=== PATIENT | male | born 1955 | race African-American/Black ===

== ENCOUNTER 2017-01-01 16:21 | Inpatient (IN) ==
[2017-01-01] MEDS ORDERED: ACETAMINOPHEN 325 MG TABLET PO PRN (17:03)
[2017-01-01] MEDS ORDERED: DEXTROSE 50% 25 GM/50 ML VIAL IV PRN ×2 (17:03)
[2017-01-01] MEDS ORDERED: ONDANSETRON 4 MG/2 ML VIAL IV PRN (17:03)
[2017-01-01] MEDS ORDERED: GLUCAGON 1 MG VIAL IM PRN ×2 (17:03)
[2017-01-01] MEDS ORDERED: BISACODYL 5 MG TABLET PO PRN (17:03)
--- NOTE | 2017-01-01 17:11 | Nephrology History & Physical ---
History of Present Illness Chief complaint: fever and chills History of present illness: Mr. Gonsalez is a 61 year old male history of chronic kidney disease due to hypertension and diabetes. The gentleman also has a history of coronary artery disease status post a stent placed approximately 2 years ago. The gentleman was in a good state of health until yesterday when he started having body aches and chills. Today he was noted to have temperature greater than 101 in clinic. Continued body aches and chills today. He is in been admitted from the clinic due to fever and noted to have a white blood cell count of greater than 17. He has received 2 g of Rocephin in the clinic as well as IV fluids. The gentleman remains very weak and has had Tylenol but still is feverish. Home Medications Medication Instructions Recorded Confirmed Type Allopurinol [Zyloprim] 100 mg PO DAILY 05/15/15 10/18/16 History Amlodipine Besylate 10 mg PO DAILY 05/15/15 10/18/16 History Aspirin EC Tab 81 mg PO DAILY 05/15/15 10/18/16 History Colchicine 0.6 mg PO DAILY 05/15/15 10/18/16 History Cyanocobalamin Tab [Vitamin B12 2,000 mcg PO DAILY 05/15/15 10/18/16 History Tab] Fenofibrate 54 mg PO DAILY 05/15/15 10/18/16 History Furosemide Tab [Lasix Tab] 20 mg PO BID DIURETIC 05/15/15 10/18/16 History [place]-3/Dha/Epa/Fish Oil [Fish Oil 1 capsule PO BID 05/15/15 10/18/16 History 1,000 mg Softgel] Pyridoxine HCl [Vitamin B-6] 100 mg PO DAILY 05/15/15 10/18/16 History glipiZIDE XL [Glucotrol Xl] 10 mg PO BID W/MEALS 05/15/15 10/18/16 History Atorvastatin [Lipitor] 40 mg PO DAILY 10/18/16 10/18/16 History Carvedilol 25 mg PO BID 10/18/16 10/18/16 History Clopidogrel [Plavix] 75 mg PO DAILY 10/18/16 10/18/16 History Fluticasone Propionate [Flonase 1 spray BOTH NARES DAILY 10/18/16 10/18/16 History Allergy Relief] Gabapentin 300 mg PO TID 10/18/16 10/18/16 History Loratadine 10 mg PO DAILY 10/18/16 10/18/16 History Multivitamin (Centrum) [Centrum 1 tablet PO DAILY 10/18/16 10/18/16 History Tab] Pantoprazole Tab [Protonix Tab] 40 mg PO DAILY 10/18/16 10/18/16 History hydrALAZINE TAB [Apresoline Tab] 50 mg PO TID 10/18/16 10/18/16 History Allergies Allergy/AdvReac Type Severity Reaction Status Date / Time No Known Drug Allergies Allergy Verified 05/15/15 00:15 Review of Systems Constitutional: chills, fatigue, fever(s), malaise Cardiovascular: no chest pain at rest, no dyspnea Gastrointestinal: no abdominal pain Neurological: no abnormal gait Medical,Surgical,& Family Hx - Medical History Cardio: History of: CAD, Hypertension, MT (2014), Cardiovascular Problems ( stents x 2 in 2014) No history of: CHF, Pacemaker Neurology: No history of: Vertigo HEENT: History of: Eye Problem (glasses) Endocrine: History of: Diabetes Mellitus (NIDDM), Dyslipidemia Rheumatology: History of;: Gout Respiratory: History of: Obstructive Sleep Apnea (uses c pap), Respiratory Problems (wheezing at times) Renal: History of: Renal Failure Genitourinary: No history of: Prostate Problems Gastrointestinal: History of: GERD, Polyps No history of: Hemorrhoids, Hepatitis, Liver Problems Musculoskeletal: History of: Back/Neck Problems, Herniated Disk Hematology: No history of: Blood Transfusion Reaction Other: No history of: Anesthesia Reactions, Cancer - Surgical History Cardiac Surgeries: Sugical HX of: Cardiac Catheterization Thoracic Surgeries: Patient denies;: Lobectomy HEENT Surgeries: Patient denies: Eye Surgery, Tonsilectomy & Adenoidectomy Abdominal Surgeries: Patient denies: Abdominal Surgery, Appendectomy, Cholecystectomy, Hernia Repair Reproductive Surgeries: Patient denies;: Genitourinary Surgery Orthopedic Surgeries: Surgical HX of;: Spinal Surgery (2005) Patient denies;: Orthopedic Surgery - Family History Family History: Reports;: Family Cancer (brother-renal), Family Diabetes ( mothers side), Family Heart Disease (Mom had MT) - Social History Smoking Status: Never smoker Exam - Nephrology - General Appearance General appearance: well-developed, well-nourished, appears started age, fatigue EENT: ATNC Neck: supple Respiratory: clear Cardiology: no edema, regular rate, regular rhythm Gastrointestinal: normoactive bowel sounds, no tenderness Neurologic: alert and oriented x3 Musculoskeletal: no erythema, no clubbing Psychiatric: mood/affect appropriate Assessment and Plan - Time spent with patient Time spent with patient: Greater than 30 minutes (1) Essential hypertension Status: Chronic Assessment and plan: Continue home medications. Current Visit: No (2) Chronic renal failure Status: Chronic Assessment and plan: Patient has chronic kidney disease stage III. This has been stable. Current Visit: No Qualifiers: Chronic kidney disease stage: stage 3 (moderate) Qualified Code(s): N18.3 - Chronic kidney disease, stage 3 (moderate) (3) Diabetes mellitus Status: Chronic Assessment and plan: Continue with sliding scale insulin. Current Visit: No Qualifiers: Chronic kidney disease stage: stage 3 (moderate) (4) Hyperlipemia Status: Chronic Current Visit: No (5) Leukocytosis Status: Acute Assessment and plan: Patient with febrile illness initial influenza was negative. Empirically treating Rocephin 2 g. Tylenol as needed. Blood cultures for temperature greater than 101. Current Visit: No (6) Bronchitis Status: Resolved Assessment and plan: Continue with albuterol. We'll get a chest x-ray. Current Visit: No
--- NOTE | 2017-01-01 17:57 | XRay Report ---
Exam: XR chest 2V Indication: Cardiomegaly shortness of breath Comparison study: 07/20/2016 Findings: Cardiac silhouette is mildly enlarged, similar to prior. There is improved aeration within the perihilar regions and lung bases. Right hemidiaphragm is mildly elevated. Uptake calcific nodular densities are compatible with prior granulomatous disease. There is no focal consolidation pneumothorax or pleural effusion identified. Impression: Mild cardiomegaly with improved aeration within the perihilar regions and lung bases. Otherwise, no active disease. PROCEDURE INTERPRETED AT [facility] DEPARTMENT OF RADIOLOGY Final Report Signed by: Dharmesh Wood
[2017-01-01 17:59] LABS: Basophils % 0.1 % (0.0-0.8); Eosinophils # 0.1 10*3/uL (0.0-0.87); Eosinophils % 0.7 % (0.00-10.9); Hematocrit 36.7 VOL% (42.0-52.0); Hemoglobin 11.6 GM/DL (14.0-18.0); Immature Granulocytes % 0.9 %; Immature Granulocytes Absolute 0.15 #; Lymphocytes # 1.4 10*3/uL (1.4-4.0); Lymphocytes % 8.4 % (21.2-54.2); Mean Corpuscular HGB Conc 31.6 GM/DL (32-36); Mean Corpuscular Hemoglobin 27 PG (27-34); Mean Platelet Volume 12.6 FL (9.6-12.0); Monocytes # 1.6 10*3/uL (0.11-0.8); Monocytes % 9.6 % (1.7-12.7); Neutrophils # 13.1 10*3/uL (1.4-7.4); Neutrophils % 80.3 % (38.7-73.9); Platelet Count 120 T/CUMM (130-400); Red Blood Count 4.37 MC/CUMM (3.8-5.5); Red Cell Distribution Width 15.3 % (9.3-17.3); White Blood Count 16.3 T/CUMM (4-12)
[2017-01-01 18:10] LABS: Albumin 3.2 G/DL (3.4-5.0); Calcium 8.2 MG/DL (8.5-10.1); Osmolality,Calculated 288.8 MOS/KG (273-304); Potassium 3.5 MMOL/L (3.5-5.1)
[2017-01-01] MEDS: ENOXAPARIN 30 MG/0.3 ML SYRINGE SUBCUT SCH (18:53)
[2017-01-01] MEDS: SODIUM CHLORIDE 0.45% 1,000 ML IV SCH (18:53)
[2017-01-01] MEDS: ALBUTEROL/IPRATROPIUM 3 ML NEB RESP TX SCH (19:44)
[2017-01-01] MEDS ORDERED: guaiFENesin/CODEINE 5 ML LIQUID PO PRN (20:55)
[2017-01-01] MEDS ORDERED: OMEGA 3 ACID ETHYL ESTERS 1 GM CAPSULE PO SCH (21:00)
[2017-01-01] MEDS: CARVEDILOL 25 MG TABLET PO SCH (22:05)
[2017-01-01] MEDS: OSELTAMIVIR 75 MG CAPSULE PO SCH (22:05)
[2017-01-01] MEDS: GABAPENTIN 300 MG CAPSULE PO SCH (22:05)
[2017-01-01] MEDS: INSULIN REGULAR 100 UNIT/ML SUBCUT SCH (22:11)
[2017-01-02] MEDS: ALBUTEROL/IPRATROPIUM 3 ML NEB RESP TX SCH ×4 (01:01→19:37)
[2017-01-02 06:44] LABS: Basophils % 0.2 % (0.0-0.8); Eosinophils % 0.2 % (0.00-10.9); Hematocrit 36.7 VOL% (42.0-52.0); Hemoglobin 11.3 GM/DL (14.0-18.0); Immature Granulocytes % 2.8 %; Immature Granulocytes Absolute 0.48 #; Lymphocytes # 1.2 10*3/uL (1.4-4.0); Mean Corpuscular HGB Conc 30.8 GM/DL (32-36); Mean Corpuscular Hemoglobin 27 PG (27-34); Mean Corpuscular Volume 85.9 FL (87-102); Mean Platelet Volume 12.2 FL (9.6-12.0); Monocytes # 1.5 10*3/uL (0.11-0.8); Monocytes % 8.8 % (1.7-12.7); Neutrophils # 13.8 10*3/uL (1.4-7.4); Platelet Count 140 T/CUMM (130-400); Red Blood Count 4.27 MC/CUMM (3.8-5.5); Red Cell Distribution Width 15.5 % (9.3-17.3); White Blood Count 17.1 T/CUMM (4-12)
[2017-01-02 07:12] LABS: Albumin 3.1 G/DL (3.4-5.0); Calcium 8.6 MG/DL (8.5-10.1); Osmolality,Calculated 293.7 MOS/KG (273-304); Phosphorous 3.4 MG/DL (2.5-4.9)
[2017-01-02] MEDS: FUROSEMIDE 20 MG TABLET PO SCH ×2 (09:05→16:11)
[2017-01-02] MEDS: ALLOPURINOL 100 MG TABLET PO SCH (09:05)
[2017-01-02] MEDS: PANTOPRAZOLE 40 MG TABLET PO SCH ×2 (09:05→09:07)
[2017-01-02] MEDS: amLODIPine 10 MG TABLET PO SCH (09:05)
[2017-01-02] MEDS: ATORVASTATIN 40 MG TABLET PO SCH (09:05)
[2017-01-02] MEDS: PYRIDOXINE 100 MG TABLET PO SCH (09:06)
[2017-01-02] MEDS: GABAPENTIN 300 MG CAPSULE PO SCH ×3 (09:06→21:59)
[2017-01-02] MEDS: COLCHICINE 0.6 MG TABLET PO SCH (09:06)
[2017-01-02] MEDS: CYANOCOBALAMIN 500 MCG TABLET PO SCH (09:06)
[2017-01-02] MEDS: CARVEDILOL 25 MG TABLET PO SCH ×2 (09:06→21:59)
[2017-01-02] MEDS: ASPIRIN EC 81 MG TABLET PO SCH (09:06)
[2017-01-02] MEDS: CLOPIDOGREL 75 MG TABLET PO SCH (09:06)
[2017-01-02] MEDS: MULTIVITAMIN (CENTRUM) TABLET PO SCH (09:06)
[2017-01-02] MEDS: LEVOFLOXACIN INJ 500 MG in PREMIX 1 EACH IV SCH (09:07)
[2017-01-02] MEDS: LORATADINE 10 MG TABLET PO SCH (09:07)
[2017-01-02] MEDS: OSELTAMIVIR 75 MG CAPSULE PO SCH ×2 (09:07→21:59)
[2017-01-02] MEDS: INSULIN REGULAR 100 UNIT/ML SUBCUT SCH ×4 (09:08→20:45)
[2017-01-02] MEDS: FISH OIL 1200 MG PO SCH ×2 (09:11→21:58)
[2017-01-02] MEDS: FLUTICASONE 50 MCG NASAL SPRAY 16 GM BOTTLE BOTH NARES SCH (09:11)
--- NOTE | 2017-01-02 10:45 | Ultrasound Report ---
Renal ultrasound Indication: Chronic renal disease Comparison: None available Findings: Kidneys are normal in size. There are cysts on the right kidney, the larger is in the mid kidney level 2.9 cm maximum dimension. The smaller has a maximum measurement 2.2 cm. . Renal parenchyma appears slightly key with increased echogenicity No hydronephrosis or nephrolithiasis is seen. The right renal length is 11.0 cm. The left renal length is 1.3 cm. No free fluid or other abnormality is seen. Impression: Simple appearing right renal cyst. Renal parenchyma appears slightly thinned with increased echogenicity, could indicate renal parenchymal disease. Ultrasound images stored and captured. PROCEDURE INTERPRETED AT [facility] DEPARTMENT OF RADIOLOGY Final Report Signed by: Dr. Dewey Greenberg
[2017-01-02 10:59] LABS: Apearance,Urine CLEAR (Clear); Bilirubin,Urine Negative (Negative); Blood, Urine Negative (Negative); Glucose,Urine (UA) 150 mg/dL (Negative); Ketones,Urine Negative (Negative); Mucus,Urine Occasional /LPF (Occasional); Nitrite,Urine Negative (Negative); Protein,Urine 100 MG/DL; RBC,Urine 1 /HPF (0-4); Urine Color Yellow (Yellow); Urine Urobilinogen < 2.0 EU/DL (0.2-1.0); WBC,Urine 8 /HPF (0-6)
[2017-01-02] MEDS: FENOFIBRATE 54 MG PO SCH (16:22)
[2017-01-02] MEDS: ENOXAPARIN 30 MG/0.3 ML SYRINGE SUBCUT SCH (18:03)
--- NOTE | 2017-01-02 20:47 | Nephrology Progress Note ---
Nephrology - PN: Subj Interval history: The patient is resting. Still has low-grade temperatures. Bodyaches appears to be slightly better. Serum creatinine noted to be 3.9. Renal ultrasound done today shows increased echogenicity that is unchanged from previous studies. Exam (PN)-Nephrology - Vital Signs Vital signs: Period Temp Pulse Resp BP Sys/Faust Pulse Ox Last 24 Hr 97.7 F-100.3 F 76-118 16-20 131-164/72-91 91-100 - General Appearance General appearance: well-developed, well-nourished EENT: ATNC Neck: supple Respiratory: clear Cardiology: regular rate, regular rhythm Gastrointestinal: normoactive bowel sounds, no tenderness Neurologic: alert and oriented x3 Musculoskeletal: no clubbing Psychiatric: mood/affect appropriate - Lab 01/02/17 06:04 01/02/17 06:04 Most recent lab results Calcium 8.6 MG/DL (8.5-10.1) 01/02/17 06:04 Phosphorus 3.4 MG/DL (2.5-4.9) 01/02/17 06:04 Assessment and Plan (1) Essential hypertension Status: Chronic Assessment and plan: Continue home medications. Current Visit: No (2) Chronic renal failure Status: Chronic Assessment and plan: Patient has chronic kidney disease stage III. This has been stable. Current Visit: No Qualifiers: Chronic kidney disease stage: stage 3 (moderate) Qualified Code(s): N18.3 - Chronic kidney disease, stage 3 (moderate) (3) Diabetes mellitus Status: Chronic Assessment and plan: Continue with sliding scale insulin. Current Visit: No Qualifiers: Chronic kidney disease stage: stage 3 (moderate) (4) Hyperlipemia Status: Chronic Current Visit: No (5) Leukocytosis Status: Acute Assessment and plan: Patient with febrile illness initial influenza was negative. Levaquin 500mg IV Tylenol as needed. Blood cultures for temperature greater than 101. Current Visit: No
[2017-01-02] MEDS: SODIUM CHLORIDE 0.45% 1,000 ML IV SCH (21:59)
[2017-01-03] MEDS: ALBUTEROL/IPRATROPIUM 3 ML NEB RESP TX SCH ×4 (00:54→19:12)
[2017-01-03 06:26] LABS: Basophils % 0.2 % (0.0-0.8); Eosinophils # 0.2 10*3/uL (0.0-0.87); Eosinophils % 1.1 % (0.00-10.9); Hematocrit 34.1 VOL% (42.0-52.0); Hemoglobin 10.6 GM/DL (14.0-18.0); Immature Granulocytes % 2.2 %; Immature Granulocytes Absolute 0.37 #; Lymphocytes # 1.3 10*3/uL (1.4-4.0); Lymphocytes % 7.6 % (21.2-54.2); Mean Corpuscular HGB Conc 31.1 GM/DL (32-36); Mean Corpuscular Hemoglobin 26 PG (27-34); Mean Corpuscular Volume 83.6 FL (87-102); Mean Platelet Volume 12.1 FL (9.6-12.0); Monocytes # 1.7 10*3/uL (0.11-0.8); Monocytes % 10.2 % (1.7-12.7); Neutrophils # 13.1 10*3/uL (1.4-7.4); Neutrophils % 78.7 % (38.7-73.9); Platelet Count 139 T/CUMM (130-400); Red Blood Count 4.08 MC/CUMM (3.8-5.5); Red Cell Distribution Width 15.7 % (9.3-17.3); White Blood Count 16.6 T/CUMM (4-12)
[2017-01-03] MEDS: MULTIVITAMIN (CENTRUM) TABLET PO SCH (08:34)
[2017-01-03] MEDS: FUROSEMIDE 20 MG TABLET PO SCH ×2 (08:34→17:14)
[2017-01-03] MEDS: CYANOCOBALAMIN 500 MCG TABLET PO SCH (08:34)
[2017-01-03] MEDS: ATORVASTATIN 40 MG TABLET PO SCH (08:34)
[2017-01-03] MEDS: COLCHICINE 0.6 MG TABLET PO SCH (08:34)
[2017-01-03] MEDS: CLOPIDOGREL 75 MG TABLET PO SCH (08:34)
[2017-01-03] MEDS: GABAPENTIN 300 MG CAPSULE PO SCH ×3 (08:34→20:56)
[2017-01-03] MEDS: ASPIRIN EC 81 MG TABLET PO SCH (08:35)
[2017-01-03] MEDS: PYRIDOXINE 100 MG TABLET PO SCH (08:35)
[2017-01-03] MEDS: amLODIPine 10 MG TABLET PO SCH (08:35)
[2017-01-03] MEDS: LEVOFLOXACIN INJ 500 MG in PREMIX 1 EACH IV SCH (08:36)
[2017-01-03] MEDS: ALLOPURINOL 100 MG TABLET PO SCH (08:36)
[2017-01-03] MEDS: PANTOPRAZOLE 40 MG TABLET PO SCH ×2 (08:36→08:41)
[2017-01-03] MEDS: FISH OIL 1200 MG PO SCH ×2 (08:36→20:56)
[2017-01-03] MEDS: CARVEDILOL 25 MG TABLET PO SCH ×2 (08:36→20:55)
[2017-01-03] MEDS: LORATADINE 10 MG TABLET PO SCH (08:36)
[2017-01-03] MEDS: FLUTICASONE 50 MCG NASAL SPRAY 16 GM BOTTLE BOTH NARES SCH (08:40)
[2017-01-03] MEDS: OSELTAMIVIR 30 MG CAPSULE PO SCH ×2 (08:41→20:56)
[2017-01-03] MEDS: FENOFIBRATE 54 MG PO SCH (08:42)
[2017-01-03] MEDS: INSULIN REGULAR 100 UNIT/ML SUBCUT SCH ×4 (09:03→20:56)
[2017-01-03] MEDS ORDERED: LACTULOSE 20 GM/30 ML UDCUP PO ONE (09:17)
--- NOTE | 2017-01-03 09:18 | Nephrology Progress Note ---
Nephrology - PN: Subj Interval history: The patient is resting. Appears a little stronger today. Temperature curve is now trying to trend down. Does have constipation. [place] he is now down to 16. Lactulose 10cc one dose. Exam (PN)-Nephrology - Vital Signs Vital signs: Period Temp Pulse Resp BP Sys/[place]ust Pulse Ox Last 24 Hr 97.3 F-100.1 F 91-112 16-20 135-164/74-91 91-99 - General Appearance General appearance: well-developed, well-nourished EENT: ATNC Neck: supple Respiratory: clear Cardiology: regular rate, regular rhythm Gastrointestinal: normoactive bowel sounds, no tenderness Neurologic: alert and oriented x3 Musculoskeletal: no clubbing - Lab 01/03/17 06:10 01/02/17 06:04 Most recent lab results Calcium 8.6 MG/DL (8.5-10.1) 01/02/17 06:04 Phosphorus 3.4 MG/DL (2.5-4.9) 01/02/17 06:04 Assessment and Plan (1) Essential hypertension Status: Chronic Assessment and plan: Continue home medications. Current Visit: No (2) Chronic renal failure Status: Chronic Assessment and plan: Patient has chronic kidney disease stage III. This has been stable. Current Visit: No Qualifiers: Chronic kidney disease stage: stage 3 (moderate) Qualified Code(s): N18.3 - Chronic kidney disease, stage 3 (moderate) (3) Diabetes mellitus Status: Chronic Assessment and plan: Continue with sliding scale insulin. Current Visit: No Qualifiers: Chronic kidney disease stage: stage 3 (moderate) (4) Hyperlipemia Status: Chronic Current Visit: No (5) Leukocytosis Status: Acute Assessment and plan: Patient with febrile illness initial influenza was negative. Levaquin 500mg IV Tylenol as needed. Blood cultures for temperature greater than 101. Current Visit: No
[2017-01-03] MEDS: SODIUM CHLORIDE 0.45% 1,000 ML IV SCH (17:13)
[2017-01-03] MEDS: ENOXAPARIN 30 MG/0.3 ML SYRINGE SUBCUT SCH (17:14)
[2017-01-04] MEDS: ALBUTEROL/IPRATROPIUM 3 ML NEB RESP TX SCH ×2 (00:17→07:57)
[2017-01-04 05:38] LABS: Basophils % 0.3 % (0.0-0.8); Eosinophils # 0.3 10*3/uL (0.0-0.87); Eosinophils % 2.1 % (0.00-10.9); Hematocrit 34.4 VOL% (42.0-52.0); Hemoglobin 10.6 GM/DL (14.0-18.0); Immature Granulocytes % 0.8 %; Immature Granulocytes Absolute 0.11 #; Lymphocytes # 1.2 10*3/uL (1.4-4.0); Lymphocytes % 9.3 % (21.2-54.2); Mean Corpuscular HGB Conc 30.8 GM/DL (32-36); Mean Corpuscular Hemoglobin 26 PG (27-34); Mean Corpuscular Volume 85.1 FL (87-102); Mean Platelet Volume 11.4 FL (9.6-12.0); Monocytes # 1.5 10*3/uL (0.11-0.8); Monocytes % 11.5 % (1.7-12.7); Platelet Count 156 T/CUMM (130-400); Red Blood Count 4.04 MC/CUMM (3.8-5.5); Red Cell Distribution Width 15.5 % (9.3-17.3); White Blood Count 13.2 T/CUMM (4-12)
[2017-01-04 06:09] LABS: Calcium 8.8 MG/DL (8.5-10.1); Potassium 3.9 MMOL/L (3.5-5.1)
[2017-01-04] MEDS: INSULIN REGULAR 100 UNIT/ML SUBCUT SCH ×2 (07:49→13:07)
[2017-01-04] MEDS: CYANOCOBALAMIN 500 MCG TABLET PO SCH (08:49)
[2017-01-04] MEDS: FISH OIL 1200 MG PO SCH (08:49)
[2017-01-04] MEDS: CLOPIDOGREL 75 MG TABLET PO SCH (08:50)
[2017-01-04] MEDS: COLCHICINE 0.6 MG TABLET PO SCH (08:50)
[2017-01-04] MEDS: OSELTAMIVIR 30 MG CAPSULE PO SCH (08:50)
[2017-01-04] MEDS: PYRIDOXINE 100 MG TABLET PO SCH (08:51)
[2017-01-04] MEDS: ASPIRIN EC 81 MG TABLET PO SCH (08:51)
[2017-01-04] MEDS: ATORVASTATIN 40 MG TABLET PO SCH (08:51)
[2017-01-04] MEDS: MULTIVITAMIN (CENTRUM) TABLET PO SCH (08:51)
[2017-01-04] MEDS: GABAPENTIN 300 MG CAPSULE PO SCH (08:51)
[2017-01-04] MEDS: PANTOPRAZOLE 40 MG TABLET PO SCH ×2 (08:52→08:54)
[2017-01-04] MEDS: amLODIPine 10 MG TABLET PO SCH (08:52)
[2017-01-04] MEDS: ALLOPURINOL 100 MG TABLET PO SCH (08:52)
[2017-01-04] MEDS: LORATADINE 10 MG TABLET PO SCH (08:52)
[2017-01-04] MEDS: FUROSEMIDE 20 MG TABLET PO SCH (08:52)
[2017-01-04] MEDS: CARVEDILOL 25 MG TABLET PO SCH (08:53)
[2017-01-04] MEDS: FENOFIBRATE 54 MG PO SCH (08:53)
[2017-01-04] MEDS: LEVOFLOXACIN INJ 500 MG in PREMIX 1 EACH IV SCH (08:53)
[2017-01-04] MEDS: FLUTICASONE 50 MCG NASAL SPRAY 16 GM BOTTLE BOTH NARES SCH (08:53)
--- NOTE | 2017-01-04 10:07 | Discharge Summary ---
Hospital Course - Hospital Course Hospital Course: This hospitalization included patient admitted for fever or fatigue elevated white count. Empirically started on antibiotics. Patient's flu was negative. The gentleman continued to show signs of improvement within a 24 hour. As his temperature curve improved within a 48 hour. He continued to improve and and white blood cell count continued to show signs of improvement. Body aches have subsided. Blood cultures have been negative. He had a follow-up renal ultrasound that showed evidence of chronic kidney disease. Serum creatinine remains stable at 3.9. Temperature curve is down he is reached maximal hospitalization and is now prepared for discharge. - Time spent with patient Time with patient DS: Greater than 30 minutes Diagnosis - Discharge Diagnosis (1) Essential hypertension Status: Chronic (2) Chronic renal failure Status: Chronic (3) Diabetes mellitus Status: Chronic (4) Hyperlipemia Status: Chronic (5) Leukocytosis Status: Resolved (6) Febrile illness Status: Resolved Discharge Plan - Discharge Data Disposition: Disch To Home/Self Care Condition at Discharge: Stable Activity: resume usual activities as tolerated - Discharge Medications New Levofloxacin Tab [Levaquin Tab] 250 mg PO DAILY #7 tablet guaiFENesin/CODEINE [Robitussin AC] 10 ml PO Q4H PRN #120 PRN Reason: Cough Continue Pyridoxine HCl [Vitamin B-6] 100 mg PO DAILY Cyanocobalamin Tab [Vitamin B12 Tab] 2,000 mcg PO DAILY Aspirin EC Tab 81 mg PO DAILY Allopurinol [Zyloprim] 100 mg PO DAILY Fenofibrate 54 mg PO DAILY Amlodipine Besylate 10 mg PO DAILY Furosemide Tab [Lasix Tab] 20 mg PO BID DIURETIC glipiZIDE XL [Glucotrol Xl] 10 mg PO BID W/MEALS Colchicine 0.6 mg PO DAILY [place]-3/Dha/Epa/Fish Oil [Fish Oil 1,000 mg Softgel] 1 capsule PO BID Pantoprazole Tab [Protonix Tab] 40 mg PO DAILY Clopidogrel [Plavix] 75 mg PO DAILY Loratadine 10 mg PO DAILY hydrALAZINE TAB [Apresoline Tab] 100 mg PO TID Gabapentin 300 mg PO TID Fluticasone Propionate [Flonase Allergy Relief] 1 spray BOTH NARES DAILY Multivitamin (Centrum) [Centrum Tab] 1 tablet PO DAILY Carvedilol 25 mg PO BID Atorvastatin [Lipitor] 40 mg PO DAILY Oseltamivir Cap [Tamiflu Cap] 75 mg PO BID Levofloxacin Tab [Levaquin Tab] 500 mg PO DAILY - Follow Up or Referral - Forms/Instructions Additional Discharge Instructions: Follow-up with Dr. Gonsalez in one week with a CBC and BMP Exam - Constitutional Vitals: Period Temp Pulse Resp BP Sys/[place] Pulse Ox Last 24 Hr 97.8 F-99.6 F 80-103 16-20 115-151/50-90 91-99 General appearance: over weight - Head Head exam: Present: normal inspection - ENT ENT exam: Present: normal exam - Neck Neck exam: Present: normal inspection - Respiratory Respiratory exam: Present: clear to auscultation bilaterally - Cardiovascular Cardiovascular exam: Present: regular rate and rhythm - GI/Abdominal GI/Abdominal exam: Present: normal bowel sounds - Neurological Exam Neurological exam: Present: alert, oriented X3 - Psychiatric Psychiatric exam: Present: normal affect Discharge Results Procedures and tests throughout hospitalization: Pending Orders 01/02/17 Urine Culture Routine Labs on day of discharge: Labs from last 24 hours 01/04/17 01/04/17 01/04/17 07:37 05:24 05:24 WBC 13.2 H RBC 4.04 Hgb 10.6 L Hct 34.4 L MCV 85.1 L MCH 26 L MCHC 30.8 L RDW 15.5 Plt Count 156 MPV 11.4 Neut % (Auto) 76.0 H Lymph % (Auto) 9.3 L [place] % (Auto) 11.5 Eos % (Auto) 2.1 Baso % (Auto) 0.3 Neut # (Auto) 10.0 H Lymph # (Auto) 1.2 L [place] # (Auto) 1.5 H Eos # (Auto) 0.3 Baso # (Auto) 0.0 Immature Gran % 0.8 Nucleated RBC % 0.0 Immature Gran # 0.11 Nucleated RBCs # 0.00 Sodium 143 Potassium 3.9 Chloride 107 Carbon Dioxide 25 Anion Gap 14.9 BUN 29 H Creatinine 3.90 H GFR Calculation 23 BUN/Creatinine Ratio 7.00 Glucose 57 L POC Glucose 81 Calculated Osmolality 288.0 Calcium 8.8 01/03/17 01/03/17 01/03/17 19:24 16:59 16:02 WBC RBC Hgb Hct MCV MCH MCHC RDW Plt Count MPV Neut % (Auto) Lymph % (Auto) [place] % (Auto) Eos % (Auto) Baso % (Auto) Neut # (Auto) Lymph # (Auto) [place] # (Auto) Eos # (Auto) Baso # (Auto) Immature Gran % Nucleated RBC % Immature Gran # Nucleated RBCs # Sodium Potassium Chloride Carbon Dioxide Anion Gap BUN Creatinine GFR Calculation BUN/Creatinine Ratio Glucose POC Glucose 96 96 94 Calculated Osmolality Calcium 01/03/17 01/03/17 15:28 11:50 WBC RBC Hgb Hct MCV MCH MCHC RDW Plt Count MPV Neut % (Auto) Lymph % (Auto) [place] % (Auto) Eos % (Auto) Baso % (Auto) Neut # (Auto) Lymph # (Auto) [place] # (Auto) Eos # (Auto) Baso # (Auto) Immature Gran % Nucleated RBC % Immature Gran # Nucleated RBCs # Sodium Potassium Chloride Carbon Dioxide Anion Gap BUN Creatinine GFR Calculation BUN/Creatinine Ratio Glucose POC Glucose 56 L 115 H Calculated Osmolality Calcium Preliminary micro results at discharge 01/02/17 Unknown Urine Culture - Preliminary Urine,Voided No Growth at 24 hours. DS: Provider Date of admission: 01/01/17 16:43 Primary care physician: Ben Garcia DO Attending physician on admission: Luis Gonsalez Jr., MD Discharging clinician: Luis Gonsalez Jr., MD
--- NOTE | 2017-01-04 11:43 | XRay Report ---
XR hip 2V RT Indication: Pain Comparison: None available Findings: No evidence of fracture seen. The alignment of the joints appears normal. Mild acetabular degenerative change is present. No soft tissue abnormality is seen. Impression: Mild hip osteoarthrosis. PROCEDURE INTERPRETED AT [facility] DEPARTMENT OF RADIOLOGY Final Report Signed by: Dr. Dewey Greenberg
[2017-01-04 13:26] VITALS: BP 130/79
== END 2017-01-04 13:50 | disposition home or self-care (01) | DRG 663 ==
LOC: N.5E 16:43
PROVIDERS: ADMIT Internal Medicine Nephrology; ATTEND Internal Medicine Nephrology

== ENCOUNTER 2019-11-15 09:39 | Inpatient (IN) ==
[2019-11-15] MEDS ORDERED: ACETAMINOPHEN 500 MG TABLET PO STA (11:19)
[2019-11-15 11:44] LABS: Apearance,Urine CLEAR (Clear); Bacteria,Urine Occasional /HPF (Few); Bilirubin,Urine Negative (Negative); Blood, Urine Small mg/dL (Negative); Glucose,Urine (UA) 50 mg/dL (Negative); Ketones,Urine Negative (Negative); Mucus,Urine Occasional /LPF (Occasional); Nitrite,Urine Negative (Negative); Protein,Urine 100 MG/DL; RBC,Urine 1 /HPF (0-4); Squamous Epithelial Cell,Urine Occasional /HPF (0-10); Urine Color Straw (Yellow); Urine Specific Gravity 1.008 (1.001-1.035); Urine Urobilinogen < 2.0 EU/DL (0.2-1.0); WBC,Urine 14 /HPF (0-6)
[2019-11-15 12:15] LABS: Basophils % 0.2 % (0.0-0.8); Eosinophils # 0.2 10*3/uL (0.0-0.87); Eosinophils % 1.3 % (0.00-10.9); Hematocrit 31.9 VOL% (42.0-52.0); Hemoglobin 9.7 GM/DL (14.0-18.0); Immature Granulocytes % 0.6 %; Lymphocytes # 1.2 10*3/uL (1.4-4.0); Lymphocytes % 7.4 % (21.2-54.2); Mean Corpuscular HGB Conc 30.4 GM/DL (32-36); Mean Corpuscular Volume 88.9 FL (87-102); Mean Platelet Volume 11.3 FL (9.6-12.0); Monocytes % 9.3 % (1.7-12.7); Neutrophils % 81.2 % (38.7-73.9); Platelet Count 158 T/CUMM (130-400); Red Blood Count 3.59 MC/CUMM (3.8-5.5); Red Cell Distribution Width 15.2 % (9.3-17.3)
[2019-11-15 12:44] LABS: Albumin 3.4 G/DL (3.4-5.0); Bilirubin,Total 0.4 MG/DL (0.2-1.0); Calcium 8.7 MG/DL (8.5-10.1); Osmolality,Calculated 292.1 MOS/KG (273-304); Total Protein 6.6 G/DL (6.4-8.3)
[2019-11-15] MEDS ORDERED: cefTRIAXone 1,000 MG in SODIUM CHLORIDE 0.9% 100 ML IV STA (13:01)
[2019-11-15] MEDS ORDERED: SODIUM CHLORIDE 0.9% 500 ML IV STA (13:30)
[2019-11-15] MEDS ORDERED: SODIUM CHLORIDE 0.9% 1,000 ML IV ONE (13:30)
[2019-11-15] MEDS ORDERED: cefTRIAXone 1,000 MG VIAL ONE (13:31)
[2019-11-15] MEDS ORDERED: cefTRIAXone 2,000 MG in SODIUM CHLORIDE 0.9% 100 ML IV STA (13:31)
[2019-11-15] MEDS ORDERED: ONDANSETRON 4 MG/2 ML VIAL IV PRN (13:41)
[2019-11-15] MEDS: OSELTAMIVIR 30 MG CAPSULE PO SCH ×2 (14:14→21:23)
[2019-11-15] MEDS: SODIUM CHLORIDE 0.9% 1,000 ML IV SCH (14:33)
[2019-11-15 14:36] LABS: ABG Base Excess -1.7 MMOL/L (-2.5-2.5); ABG HCO3 22.9 MMOL/L (20-26); ABG Oxygen Saturation 95.5 % (95-100); ABG PCO2 37.3 MM HG (35-48); ABG PH 7.395 (7.35-7.45); ABG PO2 71.6 MM HG (80-95); ABG TCO2 20.9 MMOL/L (23-27); Allen Test Positive
[2019-11-15] MEDS ORDERED: DEXTROSE 10% 25 GM/250 ML BAG IV PRN (15:52)
[2019-11-15] MEDS ORDERED: GLUCAGON 1 MG VIAL IM PRN (15:52)
[2019-11-15] MEDS: ENOXAPARIN 30 MG/0.3 ML SYRINGE SUBCUT SCH (16:35)
[2019-11-15] MEDS: PANTOPRAZOLE 40 MG TABLET PO SCH (16:35)
[2019-11-15] MEDS: TAMSULOSIN 0.4 MG CAPSULE PO SCH ×2 (16:35→21:23)
[2019-11-15] MEDS: INSULIN REGULAR 100 UNIT/ML SUBCUT SCH ×2 (16:41→21:23)
[2019-11-16] MEDS: ACETAMINOPHEN 325 MG TABLET PO PRN ×2 (00:28→09:00)
[2019-11-16] MEDS: SODIUM CHLORIDE 0.9% 1,000 ML IV SCH ×3 (01:09→13:53)
[2019-11-16 06:59] LABS: Basophils # 0.1 10*3/uL (0.0-0.2); Basophils % 0.3 % (0.0-0.8); Eosinophils # 0.1 10*3/uL (0.0-0.87); Eosinophils % 0.7 % (0.00-10.9); Hematocrit 30.5 VOL% (42.0-52.0); Immature Granulocytes % 2.6 %; Immature Granulocytes Absolute 0.47 #; Lymphocytes # 1.1 10*3/uL (1.4-4.0); Lymphocytes % 6.2 % (21.2-54.2); Mean Corpuscular HGB Conc 29.5 GM/DL (32-36); Mean Corpuscular Volume 88.7 FL (87-102); Mean Platelet Volume 11.9 FL (9.6-12.0); Monocytes % 9.4 % (1.7-12.7); Neutrophils % 80.8 % (38.7-73.9); Platelet Count 132 T/CUMM (130-400); Red Blood Count 3.44 MC/CUMM (3.8-5.5); Red Cell Distribution Width 15.3 % (9.3-17.3); White Blood Count 17.9 T/CUMM (4-12)
[2019-11-16 07:13] LABS: Albumin 2.8 G/DL (3.4-5.0); Bilirubin,Total 0.7 MG/DL (0.2-1.0); Calcium 8.4 MG/DL (8.5-10.1); Osmolality,Calculated 288.3 MOS/KG (273-304); Total Protein 6.3 G/DL (6.4-8.3)
[2019-11-16] MEDS: INSULIN REGULAR 100 UNIT/ML SUBCUT SCH ×4 (07:41→21:51)
[2019-11-16] MEDS ORDERED: LEVOFLOXACIN INJ 250 MG in PREMIX 1 EACH IV SCH (08:30)
[2019-11-16] MEDS: TAMSULOSIN 0.4 MG CAPSULE PO SCH ×2 (09:00→20:40)
[2019-11-16] MEDS: PANTOPRAZOLE 40 MG TABLET PO SCH (09:00)
[2019-11-16] MEDS: OSELTAMIVIR 30 MG CAPSULE PO SCH ×2 (09:00→20:40)
[2019-11-16] MEDS ORDERED: cefTRIAXone 2,000 MG in SYRINGE 1 EACH IV SCH (11:00)
[2019-11-16] MEDS: ENOXAPARIN 30 MG/0.3 ML SYRINGE SUBCUT SCH (13:50)
[2019-11-17] MEDS: SODIUM CHLORIDE 0.9% 1,000 ML IV SCH ×3 (01:02→23:25)
[2019-11-17 05:16] LABS: Basophils % 0.2 % (0.0-0.8); Eosinophils # 0.3 10*3/uL (0.0-0.87); Hematocrit 29.4 VOL% (42.0-52.0); Hemoglobin 8.8 GM/DL (14.0-18.0); Immature Granulocytes % 2.4 %; Immature Granulocytes Absolute 0.37 #; Lymphocytes % 6.8 % (21.2-54.2); Mean Corpuscular HGB Conc 29.9 GM/DL (32-36); Mean Corpuscular Volume 88.6 FL (87-102); Mean Platelet Volume 11.7 FL (9.6-12.0); Monocytes % 8.6 % (1.7-12.7); Platelet Count 130 T/CUMM (130-400); Red Blood Count 3.32 MC/CUMM (3.8-5.5); Red Cell Distribution Width 15.3 % (9.3-17.3); White Blood Count 15.2 T/CUMM (4-12)
[2019-11-17 05:45] LABS: Albumin 2.6 G/DL (3.4-5.0); Osmolality,Calculated 288.3 MOS/KG (273-304); Total Protein 6.7 G/DL (6.4-8.3)
[2019-11-17] MEDS: OSELTAMIVIR 30 MG CAPSULE PO SCH ×2 (09:21→21:23)
[2019-11-17] MEDS: INSULIN REGULAR 100 UNIT/ML SUBCUT SCH ×4 (09:21→21:21)
[2019-11-17] MEDS: TAMSULOSIN 0.4 MG CAPSULE PO SCH ×2 (09:21→21:23)
[2019-11-17] MEDS: PANTOPRAZOLE 40 MG TABLET PO SCH (09:21)
[2019-11-17] MEDS: ENOXAPARIN 30 MG/0.3 ML SYRINGE SUBCUT SCH (13:34)
[2019-11-17] MEDS: GABAPENTIN 400 MG CAPSULE PO SCH ×2 (15:12→21:22)
[2019-11-17] MEDS: carvediloL 25 MG TABLET PO SCH (16:20)
[2019-11-17] MEDS ORDERED: LEVOFLOXACIN INJ 250 MG in PREMIX 1 EACH IV SCH (21:30)
[2019-11-18 05:52] LABS: Basophils % 0.3 % (0.0-0.8); Eosinophils # 0.3 10*3/uL (0.0-0.87); Eosinophils % 2.6 % (0.00-10.9); Hematocrit 28.6 VOL% (42.0-52.0); Hemoglobin 8.5 GM/DL (14.0-18.0); Immature Granulocytes % 0.9 %; Immature Granulocytes Absolute 0.12 #; Lymphocytes # 0.9 10*3/uL (1.4-4.0); Mean Corpuscular HGB Conc 29.7 GM/DL (32-36); Mean Corpuscular Volume 87.7 FL (87-102); Mean Platelet Volume 11.8 FL (9.6-12.0); Monocytes % 9.5 % (1.7-12.7); Neutrophils % 79.7 % (38.7-73.9); Platelet Count 157 T/CUMM (130-400); Red Blood Count 3.26 MC/CUMM (3.8-5.5); Red Cell Distribution Width 15.4 % (9.3-17.3); White Blood Count 12.9 T/CUMM (4-12)
[2019-11-18 06:13] LABS: Albumin 2.5 G/DL (3.4-5.0); Bilirubin,Total 0.4 MG/DL (0.2-1.0); Osmolality,Calculated 295.7 MOS/KG (273-304); Total Protein 6.9 G/DL (6.4-8.3)
[2019-11-18] MEDS: PANTOPRAZOLE 40 MG TABLET PO SCH (10:14)
[2019-11-18] MEDS: CYANOCOBALAMIN 500 MCG TABLET PO SCH (10:14)
[2019-11-18] MEDS: TAMSULOSIN 0.4 MG CAPSULE PO SCH ×2 (10:14→23:11)
[2019-11-18] MEDS: ENOXAPARIN 30 MG/0.3 ML SYRINGE SUBCUT SCH (10:15)
[2019-11-18] MEDS: allopurinoL 100 MG TABLET PO SCH (10:15)
[2019-11-18] MEDS: MULTIVITAMIN (CENTRUM) TABLET PO SCH (10:15)
[2019-11-18] MEDS: ISOSORBIDE MONONITRATE 30 MG TABLET PO SCH (10:15)
[2019-11-18] MEDS: PYRIDOXINE 100 MG TABLET PO SCH (10:15)
[2019-11-18] MEDS: OMEGA 3 ACID ETHYL ESTERS 1 GM CAPSULE PO SCH (10:15)
[2019-11-18] MEDS: carvediloL 25 MG TABLET PO SCH ×2 (10:15→17:53)
[2019-11-18] MEDS: ATORVASTATIN 40 MG TABLET PO SCH (10:15)
[2019-11-18] MEDS: ASPIRIN EC 81 MG TABLET PO SCH (10:15)
[2019-11-18] MEDS: CHOLECALCIFEROL 400 UNIT TABLET PO SCH (10:16)
[2019-11-18] MEDS: CLOPIDOGREL 75 MG TABLET PO SCH (10:16)
[2019-11-18] MEDS: METHEN/SOD PHOS/METH BLUE/HYOS TABLET PO SCH ×4 (10:16→23:11)
[2019-11-18] MEDS: GABAPENTIN 400 MG CAPSULE PO SCH ×3 (10:16→23:10)
[2019-11-18] MEDS: CETIRIZINE 10 MG TABLET PO SCH (10:17)
[2019-11-18] MEDS: OSELTAMIVIR 30 MG CAPSULE PO SCH ×2 (10:30→23:11)
[2019-11-18] MEDS: INSULIN REGULAR 100 UNIT/ML SUBCUT SCH ×4 (10:31→20:53)
[2019-11-18] MEDS: SODIUM CHLORIDE 0.9% 1,000 ML IV SCH (13:33)
[2019-11-18] MEDS: LEVOFLOXACIN 250 MG TABLET PO SCH (15:19)
[2019-11-19] MEDS: SODIUM CHLORIDE 0.9% 1,000 ML IV SCH ×2 (00:28→11:23)
[2019-11-19 05:57] LABS: Basophils % 0.5 % (0.0-0.8); Eosinophils # 0.4 10*3/uL (0.0-0.87); Eosinophils % 4.2 % (0.00-10.9); Hemoglobin 8.2 GM/DL (14.0-18.0); Immature Granulocytes % 0.5 %; Immature Granulocytes Absolute 0.04 #; Lymphocytes # 1.1 10*3/uL (1.4-4.0); Lymphocytes % 12.1 % (21.2-54.2); Mean Corpuscular HGB Conc 30.4 GM/DL (32-36); Mean Corpuscular Volume 87.7 FL (87-102); Mean Platelet Volume 11.6 FL (9.6-12.0); Monocytes % 12.9 % (1.7-12.7); Neutrophils % 69.8 % (38.7-73.9); Platelet Count 167 T/CUMM (130-400); Red Blood Count 3.08 MC/CUMM (3.8-5.5); Red Cell Distribution Width 15.5 % (9.3-17.3); White Blood Count 8.8 T/CUMM (4-12)
[2019-11-19 06:17] LABS: Calcium 8.7 MG/DL (8.5-10.1); Osmolality,Calculated 291.8 MOS/KG (273-304)
[2019-11-19] MEDS: INSULIN REGULAR 100 UNIT/ML SUBCUT SCH (08:04)
[2019-11-19 08:17] VITALS: BP 150/81
[2019-11-19] MEDS: PYRIDOXINE 100 MG TABLET PO SCH (09:22)
[2019-11-19] MEDS: OSELTAMIVIR 30 MG CAPSULE PO SCH ×2 (09:22→11:20)
[2019-11-19] MEDS: CHOLECALCIFEROL 400 UNIT TABLET PO SCH (09:22)
[2019-11-19] MEDS: METHEN/SOD PHOS/METH BLUE/HYOS TABLET PO SCH (09:22)
[2019-11-19] MEDS: ENOXAPARIN 30 MG/0.3 ML SYRINGE SUBCUT SCH (09:22)
[2019-11-19] MEDS: LEVOFLOXACIN 250 MG TABLET PO SCH (09:22)
[2019-11-19] MEDS: ISOSORBIDE MONONITRATE 30 MG TABLET PO SCH (09:23)
[2019-11-19] MEDS: GABAPENTIN 400 MG CAPSULE PO SCH (09:23)
[2019-11-19] MEDS: CLOPIDOGREL 75 MG TABLET PO SCH (09:23)
[2019-11-19] MEDS: PANTOPRAZOLE 40 MG TABLET PO SCH (09:23)
[2019-11-19] MEDS: MULTIVITAMIN (CENTRUM) TABLET PO SCH (09:23)
[2019-11-19] MEDS: allopurinoL 100 MG TABLET PO SCH (09:23)
[2019-11-19] MEDS: TAMSULOSIN 0.4 MG CAPSULE PO SCH (09:23)
[2019-11-19] MEDS: ASPIRIN EC 81 MG TABLET PO SCH (09:23)
[2019-11-19] MEDS: CETIRIZINE 10 MG TABLET PO SCH (09:23)
[2019-11-19] MEDS: CYANOCOBALAMIN 500 MCG TABLET PO SCH (09:23)
[2019-11-19] MEDS: OMEGA 3 ACID ETHYL ESTERS 1 GM CAPSULE PO SCH (09:23)
[2019-11-19] MEDS: carvediloL 25 MG TABLET PO SCH (09:24)
[2019-11-19] MEDS: ATORVASTATIN 40 MG TABLET PO SCH (09:24)
[2019-11-24] MEDS ORDERED: cloNIDine 0.1 MG/24 HR PATCH TRANSDERM SCH (09:00)
== END 2019-11-19 11:22 | disposition home or self-care (01) | DRG 690 ==
LOC: N.ED 09:39 → N.EDINP 13:47 → SUATTDRO 13:47 → N.2E 14:57
PROVIDERS: ADMIT Internal Medicine; ATTEND Internal Medicine Geriatric Medicine

== ENCOUNTER 2020-04-20 09:27 | Inpatient (IN) ==
[2020-04-20 10:52] LABS: Basophils # 0.1 10*3/uL (0.0-0.2); Basophils % 1.1 % (0.0-0.8); Eosinophils # 0.7 10*3/uL (0.0-0.87); Eosinophils % 16.2 % (0.00-10.9); Hematocrit 38.3 VOL% (42.0-52.0); Hemoglobin 11.6 GM/DL (14.0-18.0); Immature Granulocytes % 0.2 %; Immature Granulocytes Absolute 0.01 #; Lymphocytes # 1.2 10*3/uL (1.4-4.0); Lymphocytes % 27.3 % (21.2-54.2); Mean Corpuscular HGB Conc 30.3 GM/DL (32-36); Mean Corpuscular Volume 86.8 FL (87-102); Mean Platelet Volume 11.9 FL (9.6-12.0); Monocytes % 10.9 % (1.7-12.7); Neutrophils % 44.3 % (38.7-73.9); Platelet Count 152 T/CUMM (130-400); Red Blood Count 4.41 MC/CUMM (3.8-5.5); Red Cell Distribution Width 14.9 % (9.3-17.3); White Blood Count 4.4 T/CUMM (4-12)
[2020-04-20 11:22] LABS: Eosinophils 18 % (0-10); Hypochromasia 1+; Lymphocytes 29 % (20-55); Microcytosis Slight; Ovalocytes Slight; Platelet Estimate Adequate; Segmented Neutrophils 44 % (50-85); Total Cells Counted 100
[2020-04-20 12:00] LABS: Sedimentation Rate-Westergren 19 MM/HR (0-20)
[2020-04-20 12:06] LABS: Albumin 3.8 G/DL (3.4-5.0); Bilirubin,Total 0.4 MG/DL (0.2-1.0); Calcium 9.8 MG/DL (8.5-10.1); Osmolality,Calculated 288.4 MOS/KG (273-304)
[2020-04-20] MEDS ORDERED: MORPHINE 4 MG/1 ML VIAL ONE (12:16)
[2020-04-20] MEDS ORDERED: ONDANSETRON 4 MG/2 ML VIAL ONE (12:17)
[2020-04-20] MEDS ORDERED: SODIUM CHLORIDE 0.9% 1,000 ML IV STA (12:21)
[2020-04-20] MEDS ORDERED: ONDANSETRON 4 MG/2 ML VIAL IV STA (12:24)
[2020-04-20] MEDS ORDERED: MORPHINE 4 MG/1 ML VIAL IV STA (12:25)
[2020-04-20] MEDS ORDERED: GLUCAGON 1 MG VIAL IM PRN (12:34)
[2020-04-20] MEDS ORDERED: DEXTROSE 50% 25 GM/50 ML VIAL IV PRN (12:34)
[2020-04-20] MEDS ORDERED: ACETAMINOPHEN 325 MG TABLET PO PRN (12:34)
[2020-04-20] MEDS ORDERED: DOCUSATE SODIUM 100 MG CAPSULE PO PRN (12:34)
[2020-04-20] MEDS ORDERED: ONDANSETRON 4 MG/2 ML VIAL IV PRN (12:34)
[2020-04-20] MEDS ORDERED: hydrALAZINE 20 MG/1 ML VIAL IV PRN (12:34)
[2020-04-20] MEDS ORDERED: SODIUM CHLORIDE 0.45% 1,000 ML IV SCH (13:00)
[2020-04-20 14:07] LABS: Risk Ratio 3.63; Thyroid Stimulating Hormone 0.42 uIU/ml (0.358-3.74); VLDL CHOLESTEROL 26.2 MG/DL
[2020-04-20] MEDS: HEPARIN 5,000 UNIT/1 ML VIAL SUBCUT SCH (15:18)
[2020-04-20] MEDS: INSULIN LISPRO 100 UNIT/ML SUBCUT SCH ×2 (18:00→21:44)
[2020-04-20] MEDS: ACETAMINOPHEN 500 MG TABLET PO PRN (21:38)
[2020-04-21] MEDS: HEPARIN 5,000 UNIT/1 ML VIAL SUBCUT SCH ×3 (01:11→21:13)
[2020-04-21 07:15] LABS: Basophils % 0.9 % (0.0-0.8); Eosinophils # 0.7 10*3/uL (0.0-0.87); Eosinophils % 14.8 % (0.00-10.9); Hematocrit 35.3 VOL% (42.0-52.0); Hemoglobin 10.6 GM/DL (14.0-18.0); Lymphocytes # 1.5 10*3/uL (1.4-4.0); Lymphocytes % 31.9 % (21.2-54.2); Mean Corpuscular Volume 87.2 FL (87-102); Mean Platelet Volume 12.2 FL (9.6-12.0); Monocytes % 10.4 % (1.7-12.7); Platelet Count 149 T/CUMM (130-400); Red Blood Count 4.05 MC/CUMM (3.8-5.5); Red Cell Distribution Width 14.9 % (9.3-17.3); White Blood Count 4.5 T/CUMM (4-12)
[2020-04-21 07:29] LABS: Osmolality,Calculated 293.1 MOS/KG (273-304)
[2020-04-21 07:43] LABS: Eosinophils 16 % (0-10); Hypochromasia 1+; Lymphocytes 29 % (20-55); Microcytosis 1+; Ovalocytes Few; Platelet Estimate Adequate; Segmented Neutrophils 52 % (50-85); Total Cells Counted 100
[2020-04-21] MEDS: INSULIN LISPRO 100 UNIT/ML SUBCUT SCH ×4 (07:56→21:13)
[2020-04-21] MEDS ORDERED: NITROGLYCERIN SL 0.4 MG TABLET SL PRN (10:51)
[2020-04-21] MEDS: CHOLECALCIFEROL 1,000 UNIT TABLET PO SCH (11:05)
[2020-04-21] MEDS: CYANOCOBALAMIN 500 MCG TABLET PO SCH (11:06)
[2020-04-21] MEDS: allopurinoL 100 MG TABLET PO SCH (11:06)
[2020-04-21] MEDS: OMEGA 3 ACID ETHYL ESTERS 1 GM CAPSULE PO SCH (11:06)
[2020-04-21] MEDS: ATORVASTATIN 40 MG TABLET PO SCH (11:06)
[2020-04-21] MEDS: COLCHICINE 0.6 MG CAPSULE PO SCH (11:06)
[2020-04-21] MEDS: ISOSORBIDE MONONITRATE 30 MG TABLET PO SCH (11:06)
[2020-04-21] MEDS: ASPIRIN EC 81 MG TABLET PO SCH (11:06)
[2020-04-21] MEDS: PYRIDOXINE 100 MG TABLET PO SCH (11:06)
[2020-04-21] MEDS: CETIRIZINE 10 MG TABLET PO SCH (11:07)
[2020-04-21] MEDS: MULTIVITAMIN (CENTRUM) TABLET PO SCH (11:07)
[2020-04-21] MEDS: ACETAMINOPHEN 500 MG TABLET PO PRN (11:07)
[2020-04-21] MEDS: CLOPIDOGREL 75 MG TABLET PO SCH (11:07)
[2020-04-21] MEDS: GABAPENTIN 400 MG CAPSULE PO SCH ×2 (14:13→20:58)
[2020-04-21] MEDS: carvediloL 25 MG TABLET PO SCH (20:57)
[2020-04-21] MEDS: TAMSULOSIN 0.4 MG CAPSULE PO SCH (20:59)
[2020-04-22 06:14] LABS: Basophils % 0.8 % (0.0-0.8); Eosinophils # 0.6 10*3/uL (0.0-0.87); Hematocrit 34.2 VOL% (42.0-52.0); Hemoglobin 10.3 GM/DL (14.0-18.0); Immature Granulocytes % 0.2 %; Immature Granulocytes Absolute 0.01 #; Lymphocytes # 1.7 10*3/uL (1.4-4.0); Lymphocytes % 34.8 % (21.2-54.2); Mean Corpuscular HGB Conc 30.1 GM/DL (32-36); Mean Platelet Volume 12.4 FL (9.6-12.0); Monocytes % 11.6 % (1.7-12.7); Neutrophils % 39.6 % (38.7-73.9); Platelet Count 138 T/CUMM (130-400); Red Blood Count 3.93 MC/CUMM (3.8-5.5); Red Cell Distribution Width 14.8 % (9.3-17.3); White Blood Count 4.8 T/CUMM (4-12)
[2020-04-22 06:35] LABS: Calcium 9.3 MG/DL (8.5-10.1)
[2020-04-22 06:47] LABS: Eosinophils 17 % (0-10); Hypochromasia Slight; Lymphocytes 38 % (20-55); Segmented Neutrophils 38 % (50-85); Total Cells Counted 100
[2020-04-22 06:48] LABS: Microcytosis Slight
[2020-04-22] MEDS: INSULIN LISPRO 100 UNIT/ML SUBCUT SCH ×4 (08:55→20:57)
[2020-04-22] MEDS: HEPARIN 5,000 UNIT/1 ML VIAL SUBCUT SCH ×2 (08:56→20:29)
[2020-04-22] MEDS: CETIRIZINE 10 MG TABLET PO SCH ×2 (08:57→09:42)
[2020-04-22] MEDS: CLOPIDOGREL 75 MG TABLET PO SCH (08:57)
[2020-04-22] MEDS: ISOSORBIDE MONONITRATE 30 MG TABLET PO SCH (08:57)
[2020-04-22] MEDS: CHOLECALCIFEROL 1,000 UNIT TABLET PO SCH (08:57)
[2020-04-22] MEDS: GABAPENTIN 400 MG CAPSULE PO SCH ×3 (08:57→20:29)
[2020-04-22] MEDS: allopurinoL 100 MG TABLET PO SCH (08:57)
[2020-04-22] MEDS: COLCHICINE 0.6 MG CAPSULE PO SCH (08:57)
[2020-04-22] MEDS: carvediloL 25 MG TABLET PO SCH ×2 (08:57→20:29)
[2020-04-22] MEDS: ASPIRIN EC 81 MG TABLET PO SCH (08:58)
[2020-04-22] MEDS: OMEGA 3 ACID ETHYL ESTERS 1 GM CAPSULE PO SCH (08:58)
[2020-04-22] MEDS: MULTIVITAMIN (CENTRUM) TABLET PO SCH (08:58)
[2020-04-22] MEDS: PYRIDOXINE 100 MG TABLET PO SCH (08:58)
[2020-04-22] MEDS: TAMSULOSIN 0.4 MG CAPSULE PO SCH ×2 (08:58→20:29)
[2020-04-22] MEDS: ATORVASTATIN 40 MG TABLET PO SCH (08:58)
[2020-04-22] MEDS: CYANOCOBALAMIN 500 MCG TABLET PO SCH (08:58)
[2020-04-22] MEDS ORDERED: cloNIDine 0.1 MG/24 HR PATCH TRANSDERM SCH (09:00)
[2020-04-22] MEDS: SODIUM CHLORIDE 0.45% 1,000 ML IV SCH (14:41)
[2020-04-23] MEDS: SODIUM CHLORIDE 0.45% 1,000 ML IV SCH ×2 (00:45→11:32)
[2020-04-23 05:44] LABS: Basophils % 0.9 % (0.0-0.8); Eosinophils # 0.6 10*3/uL (0.0-0.87); Eosinophils % 12.3 % (0.00-10.9); Hematocrit 34.3 VOL% (42.0-52.0); Hemoglobin 10.1 GM/DL (14.0-18.0); Immature Granulocytes % 0.2 %; Immature Granulocytes Absolute 0.01 #; Lymphocytes # 1.5 10*3/uL (1.4-4.0); Lymphocytes % 32.7 % (21.2-54.2); Mean Corpuscular HGB Conc 29.4 GM/DL (32-36); Mean Corpuscular Volume 88.9 FL (87-102); Mean Platelet Volume 11.8 FL (9.6-12.0); Neutrophils % 42.9 % (38.7-73.9); Platelet Count 141 T/CUMM (130-400); Red Blood Count 3.86 MC/CUMM (3.8-5.5); Red Cell Distribution Width 14.7 % (9.3-17.3); White Blood Count 4.5 T/CUMM (4-12)
[2020-04-23 06:09] LABS: Calcium 9.2 MG/DL (8.5-10.1); Osmolality,Calculated 293.1 MOS/KG (273-304)
[2020-04-23 06:54] LABS: Eosinophils 15 % (0-10); Lymphocytes 23 % (20-55); Segmented Neutrophils 49 % (50-85); Total Cells Counted 100
[2020-04-23 06:55] LABS: Hypochromasia Slight; Microcytosis Slight
[2020-04-23] MEDS: INSULIN LISPRO 100 UNIT/ML SUBCUT SCH ×2 (08:16→11:32)
[2020-04-23] MEDS: TAMSULOSIN 0.4 MG CAPSULE PO SCH (08:46)
[2020-04-23] MEDS: ATORVASTATIN 40 MG TABLET PO SCH (08:46)
[2020-04-23] MEDS: CHOLECALCIFEROL 1,000 UNIT TABLET PO SCH (08:46)
[2020-04-23] MEDS: ASPIRIN EC 81 MG TABLET PO SCH (08:46)
[2020-04-23] MEDS: allopurinoL 100 MG TABLET PO SCH (08:46)
[2020-04-23] MEDS: PYRIDOXINE 100 MG TABLET PO SCH (08:46)
[2020-04-23] MEDS: CETIRIZINE 10 MG TABLET PO SCH (08:46)
[2020-04-23] MEDS: carvediloL 25 MG TABLET PO SCH (08:46)
[2020-04-23] MEDS: OMEGA 3 ACID ETHYL ESTERS 1 GM CAPSULE PO SCH (08:46)
[2020-04-23] MEDS: ISOSORBIDE MONONITRATE 30 MG TABLET PO SCH (08:46)
[2020-04-23] MEDS: CYANOCOBALAMIN 500 MCG TABLET PO SCH (08:47)
[2020-04-23] MEDS: CLOPIDOGREL 75 MG TABLET PO SCH (08:47)
[2020-04-23] MEDS: GABAPENTIN 400 MG CAPSULE PO SCH (08:47)
[2020-04-23] MEDS: MULTIVITAMIN (CENTRUM) TABLET PO SCH (08:47)
[2020-04-23] MEDS: HEPARIN 5,000 UNIT/1 ML VIAL SUBCUT SCH (08:47)
[2020-04-23] MEDS: COLCHICINE 0.6 MG CAPSULE PO SCH (08:48)
[2020-04-23 12:17] VITALS: BP 124/80
[2020-04-24] MEDS ORDERED: ISOSORBIDE MONONITRATE 30 MG TABLET PO SCH (09:00)
[2020-04-28] MEDS ORDERED: cloNIDine 0.1 MG/24 HR PATCH TRANSDERM SCH (09:00)
== END 2020-04-23 15:25 | disposition home or self-care (01) | DRG 683 ==
LOC: N.ED 09:27 → N.EDINP 12:33 → N.TELEN 16:05
PROVIDERS: ADMIT Internal Medicine; ATTEND Internal Medicine

== ENCOUNTER 2021-06-12 18:16 | Inpatient (IN) ==
[2021-06-12] MEDS ORDERED: DEXTROSE 50% 25 GM/50 ML VIAL IV PRN (19:41)
[2021-06-12] MEDS ORDERED: ONDANSETRON 4 MG/2 ML VIAL IV PRN (19:41)
[2021-06-12] MEDS ORDERED: GLUCAGON 1 MG VIAL IM PRN (19:41)
[2021-06-12] MEDS ORDERED: ZALEPLON 5 MG CAPSULE PO PRN (19:41)
[2021-06-12 20:07] LABS: Basophils % 0.4 % (0.0-0.8); Eosinophils # 0.3 10*3/uL (0.0-0.87); Eosinophils % 4.5 % (0.00-10.9); Hematocrit 26.9 VOL% (42.0-52.0); Immature Granulocytes % 0.3 %; Immature Granulocytes Absolute 0.02 #; Lymphocytes # 0.8 10*3/uL (1.4-4.0); Lymphocytes % 11.3 % (21.2-54.2); Mean Corpuscular HGB Conc 29.7 GM/DL (32-36); Mean Corpuscular Volume 90.6 FL (87-102); Mean Platelet Volume 12.3 FL (9.6-12.0); Monocytes % 16.1 % (1.7-12.7); Neutrophils % 67.4 % (38.7-73.9); Platelet Count 153 T/CUMM (130-400); Red Blood Count 2.97 MC/CUMM (3.8-5.5); Red Cell Distribution Width 15.7 % (9.3-17.3); White Blood Count 6.9 T/CUMM (4-12)
[2021-06-12 20:29] LABS: Alanine Aminotransferase 33 U/L (16-61); Albumin 3.3 G/DL (3.4-5.0); Alkaline Phosphatase 100 U/L (45-117); Aspartate Amino Transferase 11 U/L (0-37); Bilirubin,Total < 0.39 MG/DL (0.20-1.00); Blood Urea Nitrogen 78 MG/DL (7-18); Carbon Dioxide 21 MMOL/L (21-32); Estimated Glom Filtration Rate 0 ML/MIN; Glucose 114 MG/DL (74-106); Osmolality,Calculated 306.1 MOS/KG (273-304); Potassium 4.9 MMOL/L (3.5-5.1); Sodium 142 MMOL/L (136-145); Total Protein 6.9 G/DL (6.4-8.2)
[2021-06-12 20:31] LABS: Eosinophils 3 % (0-10); Lymphocytes 12 % (20-55); Segmented Neutrophils 81 % (50-85); Total Cells Counted 100
[2021-06-12 20:32] LABS: Atypical Lymphocytes 1+; Hypochromasia 1+; Platelet Estimate Normal
[2021-06-12] MEDS ORDERED: ENOXAPARIN 30 MG/0.3 ML SYRINGE SUBCUT SCH (21:00)
[2021-06-12] MEDS: INSULIN REGULAR 100 UNIT/ML SUBCUT SCH (23:08)
[2021-06-12] MEDS: DOCUSATE SODIUM 100 MG CAPSULE PO SCH (23:08)
[2021-06-12] MEDS: ACETAMINOPHEN 325 MG TABLET PO PRN (23:09)
[2021-06-13 00:22] LABS: Bilirubin,Urine Negative (Negative); Blood, Urine Small mg/dL (Negative); Glucose,Urine (UA) 50 mg/dL (Negative); Ketones,Urine Negative (Negative); Nitrite,Urine Negative (Negative); Protein,Urine 100 MG/DL; Squamous Epithelial Cell,Urine Occasional /HPF (0-10); Urine Appearance CLEAR (Clear); Urine Color Colorless (Yellow); Urine Specific Gravity 1.008 (1.001-1.035); Urine Urobilinogen < 2.0 EU/DL (0.2-1.0)
[2021-06-13 05:17] LABS: Basophils # 0.1 10*3/uL (0.0-0.2); Basophils % 0.8 % (0.0-0.8); Eosinophils # 0.3 10*3/uL (0.0-0.87); Eosinophils % 4.3 % (0.00-10.9); Hematocrit 25.2 VOL% (42.0-52.0); Hemoglobin 7.6 GM/DL (14.0-18.0); Immature Granulocytes % 0.6 %; Immature Granulocytes Absolute 0.04 #; Lymphocytes # 0.9 10*3/uL (1.4-4.0); Lymphocytes % 14.2 % (21.2-54.2); Mean Corpuscular HGB Conc 30.2 GM/DL (32-36); Mean Corpuscular Volume 89.7 FL (87-102); Monocytes % 16.9 % (1.7-12.7); Neutrophils % 63.2 % (38.7-73.9); Platelet Count 139 T/CUMM (130-400); Red Blood Count 2.81 MC/CUMM (3.8-5.5); Red Cell Distribution Width 15.4 % (9.3-17.3); White Blood Count 6.6 T/CUMM (4-12)
[2021-06-13 05:45] LABS: INR 1.2; PT Patient Result 13.2 SECS (10.5-12.0); Partial Thromboplastin Time 36.9 SECS (23.9-33.8)
[2021-06-13 05:55] LABS: Calcium 9.8 MG/DL (8.5-10.1); Osmolality,Calculated 309.7 MOS/KG (273-304); Potassium 4.9 MMOL/L (3.5-5.1); Risk Ratio 2.62; Thyroid Stimulating Hormone 0.226 uIU/ml (0.358-3.74); VLDL Cholesterol 10.6 MG/DL
[2021-06-13 06:15] LABS: Anisocytosis 2+; Band Neutrophils 2 % (0-10); Eosinophils 3 % (0-10); Lymphocytes 15 % (20-55); Macrocytosis Slight; Platelet Estimate Adequate; Poikilocytosis Slight; Polychromasia Slight; Segmented Neutrophils 63 % (50-85); Tear Drop Cells Few; Total Cells Counted 100
[2021-06-13] MEDS: INSULIN REGULAR 100 UNIT/ML SUBCUT SCH ×4 (08:23→22:42)
[2021-06-13] MEDS: PANTOPRAZOLE 40 MG TABLET PO SCH (10:12)
[2021-06-13] MEDS: DOCUSATE SODIUM 100 MG CAPSULE PO SCH ×2 (10:12→21:14)
[2021-06-13 10:33] LABS: Hepatitis B Core IgM Quant 0.28 Index; Hepatitis B Surface Ag Quant < 0.10 Index; Hepatitis B Surface Ag Result Non-Reactive (NonReactive); Hepatitis C Virus Ab Quant 0.13 Index; Hepatitis C Virus Ab Result Non-Reactive (NonReactive)
[2021-06-13] MEDS ORDERED: NITROGLYCERIN SL 0.4 MG TABLET SL PRN (14:06)
[2021-06-13] MEDS ORDERED: FAMOTIDINE 20 MG TABLET PO PRN (14:06)
[2021-06-13] MEDS ORDERED: CETIRIZINE 10 MG TABLET PO PRN (14:06)
[2021-06-13] MEDS ORDERED: HEPARIN 5,000 UNIT/1 ML VIAL ONE (14:37)
[2021-06-13] MEDS ORDERED: TISSUE ADHESIVE 1 EACH APPLICATOR TOP ONE (14:37)
[2021-06-13] MEDS ORDERED: BUPIVACAINE 0.5% 50 ML VIAL ONE (14:37)
[2021-06-13] MEDS ORDERED: LIDOCAINE 1%/EPI INJ 20 ML VIAL ONE (14:38)
[2021-06-13] MEDS ORDERED: propofoL 200 MG/20 ML VIAL IV ONE (14:57)
[2021-06-13] MEDS ORDERED: LIDOCAINE 2% 5 ML VIAL ONE (14:57)
[2021-06-13] MEDS ORDERED: ETOMIDATE 40 MG/20 ML VIAL IV ONE (16:11)
[2021-06-13] MEDS: GABAPENTIN 400 MG CAPSULE PO SCH ×2 (18:15→21:14)
[2021-06-13] MEDS: cloNIDine 0.1 MG TABLET PO SCH ×2 (18:15→21:14)
[2021-06-13] MEDS: amLODIPine 5 MG TABLET PO SCH (18:15)
[2021-06-13] MEDS ORDERED: HEPARIN 10,000 UNIT/10 ML VIAL IV ONE (19:15)
[2021-06-13] MEDS: COLCHICINE 0.6 MG CAPSULE PO SCH (21:14)
[2021-06-13] MEDS: TAMSULOSIN 0.4 MG CAPSULE PO SCH (21:14)
[2021-06-13] MEDS: carvediloL 25 MG TABLET PO SCH (21:14)
[2021-06-13] MEDS: oxyCODONE/ACETAMINOPHEN 5-325 MG TABLET PO PRN (22:13)
[2021-06-14] MEDS ORDERED: VANCOMYCIN INJ 1,000 MG in SODIUM CHLORIDE 0.9% 250 ML IV ONE (00:08)
[2021-06-14 01:00] LABS: Basophils % 0.6 % (0.0-0.8); Eosinophils # 0.1 10*3/uL (0.0-0.87); Eosinophils % 1.9 % (0.00-10.9); Hemoglobin 8.2 GM/DL (14.0-18.0); Immature Granulocytes % 0.6 %; Immature Granulocytes Absolute 0.04 #; Lymphocytes # 0.7 10*3/uL (1.4-4.0); Lymphocytes % 11.7 % (21.2-54.2); Mean Corpuscular HGB Conc 30.4 GM/DL (32-36); Mean Corpuscular Volume 87.4 FL (87-102); Mean Platelet Volume 12.5 FL (9.6-12.0); Neutrophils % 69.2 % (38.7-73.9); Platelet Count 156 T/CUMM (130-400); Red Blood Count 3.09 MC/CUMM (3.8-5.5); Red Cell Distribution Width 15.4 % (9.3-17.3); White Blood Count 6.3 T/CUMM (4-12)
[2021-06-14 01:11] LABS: Calcium 9.6 MG/DL (8.5-10.1); Osmolality,Calculated 300.1 MOS/KG (273-304); Potassium 4.2 MMOL/L (3.5-5.1)
[2021-06-14 03:27] LABS: Lymphocytes 6 % (20-55); Microcytosis 1+; Nucleated Red Blood Cells 1 (0-5); Segmented Neutrophils 84 % (50-85); Total Cells Counted 100
[2021-06-14 03:29] LABS: Platelet Estimate Normal
[2021-06-14 03:30] LABS: Hypochromasia Slight; Polychromasia Slight; Schistocytes Few
[2021-06-14 03:31] LABS: Stomatocytes Slight; Target Cells Slight
[2021-06-14 03:32] LABS: Ovalocytes Few
[2021-06-14] MEDS: INSULIN REGULAR 100 UNIT/ML SUBCUT SCH ×4 (08:06→23:46)
[2021-06-14] MEDS ORDERED: HEPARIN 10,000 UNIT/10 ML VIAL IV SCH (10:00)
[2021-06-14] MEDS: GABAPENTIN 400 MG CAPSULE PO SCH ×3 (12:27→21:06)
[2021-06-14] MEDS: cloNIDine 0.1 MG TABLET PO SCH ×3 (12:27→21:06)
[2021-06-14] MEDS: ASPIRIN EC 81 MG TABLET PO SCH (12:29)
[2021-06-14] MEDS: allopurinoL 100 MG TABLET PO SCH (12:29)
[2021-06-14] MEDS: CYANOCOBALAMIN 500 MCG TABLET PO SCH (12:29)
[2021-06-14] MEDS: carvediloL 25 MG TABLET PO SCH ×2 (12:29→21:06)
[2021-06-14] MEDS: PYRIDOXINE 100 MG TABLET PO SCH (12:29)
[2021-06-14] MEDS: amLODIPine 5 MG TABLET PO SCH (12:29)
[2021-06-14] MEDS: MULTIVITAMIN (CENTRUM) TABLET PO SCH (12:29)
[2021-06-14] MEDS: DOCUSATE SODIUM 100 MG CAPSULE PO SCH ×2 (12:29→21:06)
[2021-06-14] MEDS: PANTOPRAZOLE 40 MG TABLET PO SCH (12:29)
[2021-06-14] MEDS: OMEGA 3 ACID ETHYL ESTERS 1 GM CAPSULE PO SCH (12:29)
[2021-06-14] MEDS: CLOPIDOGREL 75 MG TABLET PO SCH (12:30)
[2021-06-14] MEDS: TAMSULOSIN 0.4 MG CAPSULE PO SCH ×2 (12:30→21:06)
[2021-06-14] MEDS: COLCHICINE 0.6 MG CAPSULE PO SCH ×2 (12:30→21:06)
[2021-06-14] MEDS: Ferric Citrate [Auryxia] 210 mg iron Tablet PO SCH (12:30)
[2021-06-14] MEDS: oxyCODONE/ACETAMINOPHEN 5-325 MG TABLET PO PRN (16:23)
[2021-06-14] MEDS ORDERED: ALBUTEROL/IPRATROPIUM 3 ML NEB RESP TX PRN (16:50)
[2021-06-14] MEDS: ACETAMINOPHEN 325 MG TABLET PO PRN (21:17)
[2021-06-15 06:00] LABS: Osmolality,Calculated 290.5 MOS/KG (273-304); Potassium 4.5 MMOL/L (3.5-5.1)
[2021-06-15 07:15] VITALS: BP 110/50
[2021-06-15] MEDS: INSULIN REGULAR 100 UNIT/ML SUBCUT SCH ×2 (07:38→13:14)
[2021-06-15] MEDS: ASPIRIN EC 81 MG TABLET PO SCH (08:22)
[2021-06-15] MEDS: COLCHICINE 0.6 MG CAPSULE PO SCH (08:22)
[2021-06-15] MEDS: OMEGA 3 ACID ETHYL ESTERS 1 GM CAPSULE PO SCH (08:23)
[2021-06-15] MEDS: MULTIVITAMIN (CENTRUM) TABLET PO SCH (08:23)
[2021-06-15] MEDS: CLOPIDOGREL 75 MG TABLET PO SCH (08:23)
[2021-06-15] MEDS: cloNIDine 0.1 MG TABLET PO SCH (08:23)
[2021-06-15] MEDS: amLODIPine 5 MG TABLET PO SCH (08:23)
[2021-06-15] MEDS: allopurinoL 100 MG TABLET PO SCH (08:23)
[2021-06-15] MEDS: PANTOPRAZOLE 40 MG TABLET PO SCH (08:23)
[2021-06-15] MEDS: CYANOCOBALAMIN 500 MCG TABLET PO SCH (08:23)
[2021-06-15] MEDS: GABAPENTIN 400 MG CAPSULE PO SCH (08:23)
[2021-06-15] MEDS: TAMSULOSIN 0.4 MG CAPSULE PO SCH (08:24)
[2021-06-15] MEDS: DOCUSATE SODIUM 100 MG CAPSULE PO SCH (08:24)
[2021-06-15] MEDS: PYRIDOXINE 100 MG TABLET PO SCH (08:24)
[2021-06-15] MEDS: carvediloL 25 MG TABLET PO SCH (08:24)
[2021-06-15] MEDS: Ferric Citrate [Auryxia] 210 mg iron Tablet PO SCH (08:28)
== END 2021-06-15 14:22 | disposition home or self-care (01) | DRG 674 ==
LOC: N.5E 19:16 → SUATTDRO 19:16
PROVIDERS: ADMIT Internal Medicine; ATTEND Internal Medicine

== ENCOUNTER 2021-10-17 20:31 | Observation (INO) ==
[2021-10-18 01:17] LABS: Basophils % 0.7 % (0.0-0.8); Eosinophils # 0.2 10*3/uL (0.0-0.87); Eosinophils % 3.9 % (0.00-10.9); Hematocrit 36.2 VOL% (42.0-52.0); Hemoglobin 11.2 GM/DL (14.0-18.0); Immature Granulocytes % 0.2 %; Immature Granulocytes Absolute 0.01 #; Lymphocytes # 1.2 10*3/uL (1.4-4.0); Lymphocytes % 20.3 % (21.2-54.2); Mean Corpuscular HGB Conc 30.9 GM/DL (32-36); Mean Corpuscular Volume 92.8 FL (87-102); Mean Platelet Volume 11.4 FL (9.6-12.0); Monocytes % 19.3 % (1.7-12.7); Neutrophils % 55.6 % (38.7-73.9); Platelet Count 130 T/CUMM (130-400); Red Cell Distribution Width 16.3 % (9.3-17.3); White Blood Count 5.9 T/CUMM (4-12)
[2021-10-18 01:34] LABS: Albumin 3.7 G/DL (3.4-5.0); Bilirubin,Total 0.4 MG/DL (0.20-1.00); Calcium 10.4 MG/DL (8.5-10.1); Osmolality,Calculated 278.1 MOS/KG (273-304); Potassium 4.1 MMOL/L (3.5-5.1); Total Protein 8.1 G/DL (6.4-8.2)
[2021-10-18 02:47] LABS: Eosinophils 10 % (0-10); Lymphocytes 23 % (20-55); Segmented Neutrophils 61 % (50-85); Total Cells Counted 100
[2021-10-18 02:48] LABS: Hypochromasia Slight; Microcytosis 1+; Platelet Estimate Normal
[2021-10-18 02:49] LABS: Ovalocytes Few; Polychromasia Slight; Stomatocytes Few
[2021-10-18] MEDS ORDERED: PIPERACILLIN/TAZOBACTAM 3,375 MG in SODIUM CHLORIDE 0.9% 100 ML IV STA (02:55)
[2021-10-18 03:05] LABS: Bacteria,Urine Occasional /HPF (Few); Bilirubin,Urine Negative (Negative); Blood, Urine Small mg/dL (Negative); Glucose,Urine (UA) 50 mg/dL (Negative); Ketones,Urine Negative (Negative); Nitrite,Urine Negative (Negative); Protein,Urine 100 MG/DL; Squamous Epithelial Cell,Urine Occasional /HPF (0-10); Urine Appearance CLEAR (Clear); Urine Color Yellow (Yellow); Urine Urobilinogen < 2.0 EU/DL (0.2-1.0)
[2021-10-18] MEDS ORDERED: VANCOMYCIN INJ 1,000 MG in SODIUM CHLORIDE 0.9% 250 ML IV STA (03:28)
[2021-10-18] MEDS ORDERED: DEXTROSE 50% 25 GM/50 ML SYRINGE IV PRN (03:41)
[2021-10-18] MEDS ORDERED: ONDANSETRON 4 MG/2 ML VIAL IV PRN (03:41)
[2021-10-18] MEDS ORDERED: GLUCAGON 1 MG VIAL IM PRN (03:41)
[2021-10-18] MEDS ORDERED: ACETAMINOPHEN 325 MG TABLET PO PRN (03:41)
[2021-10-18 06:02] LABS: Basophils % 0.6 % (0.0-0.8); Eosinophils # 0.3 10*3/uL (0.0-0.87); Eosinophils % 5.8 % (0.00-10.9); Hematocrit 33.4 VOL% (42.0-52.0); Hemoglobin 10.3 GM/DL (14.0-18.0); Immature Granulocytes % 0.4 %; Immature Granulocytes Absolute 0.02 #; Lymphocytes # 1.1 10*3/uL (1.4-4.0); Mean Corpuscular HGB Conc 30.8 GM/DL (32-36); Mean Corpuscular Volume 92.3 FL (87-102); Mean Platelet Volume 10.3 FL (9.6-12.0); Monocytes % 23.3 % (1.7-12.7); Neutrophils % 45.9 % (38.7-73.9); Platelet Count 116 T/CUMM (130-400); Red Blood Count 3.62 MC/CUMM (3.8-5.5); Red Cell Distribution Width 16.2 % (9.3-17.3); White Blood Count 4.6 T/CUMM (4-12)
[2021-10-18 06:22] LABS: Calcium 10.4 MG/DL (8.5-10.1)
[2021-10-18 06:28] LABS: Eosinophils 5 % (0-10); Lymphocytes 24 % (20-55); Segmented Neutrophils 47 % (50-85); Total Cells Counted 100
[2021-10-18 06:29] LABS: Atypical Lymphocytes Few; Hypochromasia 1+; Microcytosis 1+; Ovalocytes Few
[2021-10-18 06:30] LABS: Platelet Estimate Decreased; Target Cells Slight
[2021-10-18] MEDS: COLCHICINE 0.6 MG CAPSULE PO SCH ×2 (09:05→21:14)
[2021-10-18] MEDS: allopurinoL 100 MG TABLET PO SCH (09:05)
[2021-10-18] MEDS: PANTOPRAZOLE 40 MG TABLET PO SCH (09:07)
[2021-10-18] MEDS: CLOPIDOGREL 75 MG TABLET PO SCH (09:07)
[2021-10-18] MEDS: TAMSULOSIN 0.4 MG CAPSULE PO SCH ×2 (09:08→21:14)
[2021-10-18] MEDS: carvediloL 25 MG TABLET PO SCH ×2 (09:08→21:13)
[2021-10-18] MEDS: ENOXAPARIN 30 MG/0.3 ML SYRINGE SUBCUT SCH (09:15)
[2021-10-18] MEDS: PIPERACILLIN/TAZOBACTAM 3,375 MG in SODIUM CHLORIDE 0.9% 100 ML IV SCH (16:14)
[2021-10-18] MEDS ORDERED: VANCOMYCIN INJ 1,000 MG in SODIUM CHLORIDE 0.9% 250 ML IV ONE (21:00)
[2021-10-19] MEDS: PIPERACILLIN/TAZOBACTAM 3,375 MG in SODIUM CHLORIDE 0.9% 100 ML IV SCH ×2 (04:10→18:24)
[2021-10-19] MEDS: allopurinoL 100 MG TABLET PO SCH (10:35)
[2021-10-19] MEDS: COLCHICINE 0.6 MG CAPSULE PO SCH (10:35)
[2021-10-19] MEDS: TAMSULOSIN 0.4 MG CAPSULE PO SCH (10:35)
[2021-10-19] MEDS: PANTOPRAZOLE 40 MG TABLET PO SCH (10:35)
[2021-10-19] MEDS: carvediloL 25 MG TABLET PO SCH (10:35)
[2021-10-19] MEDS: CLOPIDOGREL 75 MG TABLET PO SCH (10:35)
[2021-10-19 10:37] LABS: INR 1.1; PT Patient Result 12.1 SECS (10.5-12.0)
[2021-10-19] MEDS ORDERED: HEPARIN 10,000 UNIT/10 ML VIAL IV PRN (14:59)
[2021-10-19] MEDS: ENOXAPARIN 30 MG/0.3 ML SYRINGE SUBCUT SCH (15:04)
[2021-10-19] MEDS ORDERED: VANCOMYCIN INJ 750 MG in SODIUM CHLORIDE 0.9% 250 ML IV PRN (17:00)
[2021-10-19] MEDS ORDERED: VANCOMYCIN INJ 750 MG in SODIUM CHLORIDE 0.9% 250 ML IV ONE (17:00)
[2021-10-19 17:55] VITALS: BP 151/81
== END 2021-10-19 19:35 | disposition home or self-care (01) ==
LOC: N.ED 20:31 → N.EDINP 10-18 03:41 → INTOOBSV 10-18 03:41 → N.5E 10-18 13:45
PROVIDERS: ADMIT Internal Medicine; ATTEND Internal Medicine